=== PATIENT | male | born 1960 | race Caucasian/White ===

== ENCOUNTER 2017-04-21 12:14 | Day surgery (SDC) | payer BC ==
[2017-04-21] MEDS ORDERED: TETRACAINE 0.5% OPHTH 1 DOSE AFFEYE ONE (12:15)
[2017-04-21] MEDS ORDERED: VIGAMOX 0.5% OPHTH 1 DOSE AFFEYE ONE ×4 (12:20→14:43)
[2017-04-21] MEDS ORDERED: NS 500 ML IV 500 ML IV ONE (12:23)
[2017-04-21] MEDS ORDERED: PROLENSA OPHTH 1 DOSE AFFEYE ONE (12:31)
[2017-04-21] MEDS ORDERED: ALPHAGAN-P OPHTH 1 DOSE AFFEYE ONE (12:32)
[2017-04-21] MEDS ORDERED: MYDRIACIL OPHTH 1 DOSE AFFEYE ONE ×3 (12:33→12:35)
[2017-04-21] MEDS ORDERED: AK-DILATE 2.5% OPHTH 1 DOSE OP ONE ×3 (12:33→12:35)
[2017-04-21] MEDS ORDERED: CYCLOGYL 1% OPHTH 1 DOSE OP ONE ×3 (12:33→12:35)
[2017-04-21] MEDS ORDERED: KENALOG INJ 40 MG IM ONE ×2 (14:16→14:43)
[2017-04-21] MEDS ORDERED: TETRACAINE HCL AFFEYE ONE (14:30)
[2017-04-21] MEDS ORDERED: BETADINE OPHTH SOLN 5% EACHEYE ONE (14:30)
[2017-04-21 17:16] VITALS: BP 124/75
== END 2017-04-21 15:10 | disposition home or self-care (01) ==
LOC: SURG1 12:14
PROVIDERS: ATTEND Ophthalmology
PROC: 08DJ3ZZ Extraction of Right Lens, Percutaneous Approach (ICD-10-PCS; principal; 2017-04-21 18:15)
PROC: 08RJ3JZ Replacement of Right Lens with Synthetic Substitute, Percutaneous Approach (ICD-10-PCS; principal; 2017-04-21 18:15)
PROC: 08BSXZX Excision of Right Conjunctiva, External Approach, Diagnostic (ICD-10-PCS; principal; 2017-04-21 18:15)
PROC: 08U007Z Supplement of Right Eye with Autologous Tissue Substitute, Open Approach (ICD-10-PCS; principal; 2017-04-21 18:15)
DX: H25.11 Age-related nuclear cataract, right eye (principal); H11.051 Peripheral pterygium, progressive, right eye
CPT/HCPCS: A4217; J3301